=== PATIENT | female | born 1940 | race American Indian/Alaskan Native ===

== ENCOUNTER 2017-01-17 03:23 | Emergency (ER) | payer MEDICARE ==
[~2017-01-17 03:23] MED LIST: LEVOPHED DRIP 4 MG/NS 250 ML 4 MG/250 ML BAG IV ONE
[2017-01-17] MEDS ORDERED: LEVOPHED DRIP 4 MG/NS 250 ML 4 MG/250 ML BAG IV ONE (03:44)
--- NOTE | 2017-01-17 04:28 | Emergency Department Report ---
ED CPR HPI - General Chief Complaint: Cardiac Arrest/CPR Stated Complaint: CARDIAC ARREST Time Seen by Provider: 01/17/17 03:23 Source: family, EMS Mode of arrival: Stretcher Limitations: Other - History of Present Illness Initial Comments: 76-year-old female with a past medical history of CHF and hypertension, and non- insulin diabetes presents to the hospital cardiopulmonary arrest. Family reports that the patient went up to get to the bathroom and was short of breath. She sat on the bed and passed out. Patient has had similar episodes in the past but typically becomes responsive. Family then realized that patient was not breathing and called EMS. Call received at 2:49 AM. Patient in PEA upon EMS arrival. EMS intubated with 7.0 ET tube. Chest compressions were initiated. No IV access was obtained and no meds given prior to arrival. They resuscitated patient for 15-20 minutes prior to arrival at 3:25 AM. Patient presents to the ED in PEA. ED Review of Systems ROS: Stated complaint: CARDIAC ARREST Other details as noted in HPI Comment: Unobtainable due to pts medical conditions ED Past Medical Hx - Past Medical History Previous Medical History?: Yes Hx Hypertension: Yes Hx Congestive Heart Failure: Yes Hx Diabetes: Yes Additional medical history: "bad lung"; HLD - Social History Smoking Status: Never Smoker ED Physical Exam - General Limitations: Other - Other Other exam information: General: Unresponsive Head exam: Atraumatic, normocephalic Eyes exam: Pupils fixed and dilated ENT: Orally intubated 7.0 ET tube Neck exam: Normal inspection Respiratory exam: Equal breath sounds with bagging Cardiovascular: Pulses, no audible heartbeat Abdomen: Soft, nondistended Extremity: No deformity no spontaneous movement Back: Normal Inspection Neurologic: GCS equals 3 deficit Psychiatric: Unresponsive Skin: Warm, dry, intact ED Course - Reevaluation(s) Reevaluation #1: 01/17/17 Accu-Chek in the 200s. Patient received multiple doses of epi and sodium bicarbonate. Temporary return of spontaneous circulation narrow complex tachycardic rhythm. Upper patient deteriorated back to PEA and remained there despite resuscitation efforts. Please see code sheet for further details time of : 3:47am. Family present in the ED informed the patient's . ED Medical Decision Making - Medical Decision Making Despite resuscitation efforts patient remained in PEA. Pupils fixed and dilated. Time of 3:47 AM. - Differential Diagnosis PE, [place], arrhythmia, CVA Critical Care Time: Yes Critical care time in (mins) excluding proc time.: 40 Critical care attestation.: If time is entered above; I have spent that time in minutes in the direct care of this critically ill patient, excluding procedure time. ED Disposition Clinical Impression: Cardiopulmonary arrest Disposition: DC-20 Is pt being admited?: No Condition: Critical Time of Disposition: 04:07
[2017-01-17] MEDS ORDERED: ADRENALIN ONE (14:52)
[2017-01-17] MEDS ORDERED: SODIUM BICARBONATE IV ONE (14:52)
== END 2017-01-17 04:40 ==
LOC: ED 03:23
DX: I46.9 Cardiac arrest, cause unspecified (principal); I10 Essential (primary) hypertension; E11.9 Type 2 diabetes mellitus without complications; I50.9 Heart failure, unspecified
CPT/HCPCS: 82962; 92950; 99291; J0171